=== PATIENT | female | born 1995 | race Caucasian/White ===

== ENCOUNTER 2018-04-09 16:58 | Emergency (ER) | payer SELFPAY, OTHER, MEDICAID ==
[2018-04-09 18:40] LABS: URINE BLOOD (Dip) POC Negative (NEGATIVE); URINE GLUCOSE (Dip) POC Negative (NEGATIVE); URINE KETONES (Dip) POC Negative (NEGATIVE); URINE LEUKOCYTE EST (Dip) POC Negative (NEGATIVE); URINE NITRITE (Dip) POC Negative (NEGATIVE); URINE TOTAL PROTEIN POC Negative (NEGATIVE)
[2018-04-09 18:40] LABS: URINE PH (Dip) POC 6.5 (5.0-8.5)
== END 2018-04-09 21:30 | disposition home or self-care (01) ==
LOC: FTE 16:58
DX: R10.31 Right lower quadrant pain (principal); R10.2 Pelvic and perineal pain
CPT/HCPCS: 73510; 73562; 76830; 76856; 81003; 81025; 99284-25

== ENCOUNTER 2019-03-06 11:51 | Emergency (ER) | payer MEDICAID ==
[2019-03-06] MEDS: LORAZEPAM 0.5 MG TAB PO (13:04)
== END 2019-03-06 14:19 | disposition home or self-care (01) ==
LOC: FTE 11:51
DX: R07.9 Chest pain, unspecified (principal)
CPT/HCPCS: 71045; 93005; 99284-25